=== PATIENT | female | born 1945 | race Caucasian/White ===

== ENCOUNTER 2017-01-07 07:49 | Day surgery (SDC) ==
[2017-01-07] MEDS ORDERED: ALBUTEROL 0.083% NEB NEB STA (09:36)
[2017-01-07] MEDS ORDERED: LIDOCAINE 1% 20 ML MDV ONE (10:01)
[2017-01-07] MEDS ORDERED: LIDOCAINE 1% 2ML (SURGERY ONLY) ID ONE (10:01)
[2017-01-07] MEDS ORDERED: VERSED ONE (10:04)
[2017-01-07] MEDS ORDERED: ROMAZICON IVP ONE (10:04)
[2017-01-07] MEDS ORDERED: DIPRIVAN 20 ML VIAL IVP ONE (10:04)
[2017-01-07] MEDS ORDERED: DEMEROL 25 MG/ML SYRINGE IVP ONE (11:00)
[2017-01-07 12:22] VITALS: BP 104/53; TEMP 97.2
--- NOTE | 2017-01-20 09:21 | OP ---
PREOPERATIVE DIAGNOSIS: This is a 71-year-old lady with history of having dislocation of the mandible. For this reason she is admitted for closed reduction of dislocated mandible. POSTOPERATIVE DIAGNOSIS: Same OPERATION: Closed reduction PROCEDURE: The patient was taken to surgery, placed on the table and general anesthesia was administered with anesthesia standby. Then using internal manipulation the mandible was brought posteriorly and inferiorly and tried to be reduced. There was question if it could completely be reduced because of the fixation of the area and was elected to discontinue any further force. The patient was then taken back to the recovery room in satisfactory condition. CYNTH[place]
== END 2017-01-07 12:10 | disposition home or self-care (01) ==
LOC: SURG 07:49
PROVIDERS: ATTEND Otolaryngology
DX: S03.00XA Dislocation of jaw, unspecified side, initial encounter (principal); M26.629 Arthralgia of temporomandibular joint, unspecified side; Z87.81 Personal history of (healed) traumatic fracture
CPT/HCPCS: 21451; 94640